=== PATIENT | female | born 1965 | race Caucasian/White ===

== ENCOUNTER 2018-09-17 09:12 | Emergency (ER) | payer OTHER ==
[2018-09-17 09:50] VITALS: BP 117/73
--- NOTE | 2018-09-17 10:00 | UC ---
Respiratory Complaint HPI - HPI Summary HPI Summary: 53 yo female c/o coughing all night for the past 2 nights, she has had URI symptoms for close to a week. Denies fever, SOB, wheezing, denies Hx of asthma or smoking. Her has similar symptoms - History of Current Complaint Stated Complaint: COUGH Time Seen by Provider: 09/17/18 09:40 Hx Obtained From: Patient ?: No Onset/Duration: Sudden Onset Severity Initially: Moderate Character: Cough: Nonproductive Aggravating Factors: Nothing Alleviating Factors: Upright Position Associated Signs And Symptoms: Positive: URI, Nasal Congestion - Risk Factors Pulmonary Embolism Risk Factors: Oral Contraceptives Cardiac Risk Factors: Negative Pseudomonas Risk Factors: Negative Tuberculosis Risk Factors: Negative - Allergies/Home Medications Allergies/Adverse Reactions: Allergies Allergy/AdvReac Type Severity Reaction Status Date / Time No Known Allergies Allergy Verified 10/19/15 14:09 Home Medications: Home Medications [id number] LIQ* [Robitussin*] 09/17/18 [History] PMH/Surg Hx/FS Hx/Imm Hx Previously Healthy: Yes - Surgical History Surgical History: Yes Surgery Procedure, Year, and Place: c section x 2 - Family History Known Family History: Positive: Hypertension, Diabetes - Social History Alcohol Use: None Substance Use Type: None Smoking Status (MU): Never Smoked Tobacco Review of Systems ENT: Nasal Discharge Respiratory: Cough All Other Systems Reviewed And Are Negative: Yes Physical Exam Triage Information Reviewed: Yes Appearance: Well-Appearing, No Pain Distress, Well-Nourished Vital Signs Reviewed: Yes Eyes: Positive: Conjunctiva Clear ENT: Positive: Hearing grossly normal, Pharyngeal erythema Neck: Positive: Supple, Nontender, No Lymphadenopathy Respiratory: Positive: Chest non-tender, Lungs clear, Normal breath sounds, No respiratory distress Cardiovascular: Positive: RRR, No Murmur, Pulses Normal, Brisk Capillary Refill Abdomen Description: Positive: Nontender Respiratory Course/Dx - Course Course Of Treatment: acute bronchitis triggered by viral URI, continue supportive care with fluids and analgesics as needed. Prescription of flovent and tessalon given, f.u with PCP in 1 week. - Differential Dx/Diagnosis Provider Diagnoses: acute bronchitis Discharge - Sign-Out/Discharge Documenting (check all that apply): Patient Departure All imaging exams completed and their final reports reviewed: No Studies - Discharge Plan Condition: Stable Disposition: HOME Prescriptions: Benzonatate CAP* [Tessalon 100 MG CAP*] 100 mg PO TID PRN #30 cap PRN Reason: Cough Fluticasone DISKUS 250 MCG(NF) [Flovent Diskus 250 MCG(NF)] 1 puff INH BID 7 Days #1 diskus Patient Education Materials: Acute Bronchitis (ED), Fluticasone (By breathing) , Benzonatate (By mouth) Referrals: Armando Wagner MD [Primary Care Provider] - - Billing Disposition and Condition Condition: STABLE Disposition: Home
== END 2018-09-17 10:30 | disposition home or self-care (01) ==
LOC: UCEAST 09:12
DX: J20.9 Acute bronchitis, unspecified (principal)
CPT/HCPCS: 99212; G0463